=== PATIENT | male | born 1980 | race Caucasian/White ===

== ENCOUNTER → 2019-08-15 | Emergency (ER) | payer OTHER ==
[2019-08-15 09:38] VITALS: BMI 25.6
[2019-08-15 11:14] LABS: EOS % 4.7 % (0-4.5); HEMATOCRIT 49.3 % (35.4-49); HEMOGLOBIN 16.1 GM/dL (11.7-16.9); LYMPH % 21.4 % (8-40); MCH 31.2 pg (25.7-33.7); MCHC 32.7 g/dl (32.0-35.9); MEAN CELL VOLUME 95.6 fl (80-96); MEAN PLT VOLUME 8.7 fl (7.5-11.1); MONO % 8.7 % (3.8-10.2); NEUT % 64.2 % (42.8-82.8); PLATELET COUNT 277 K/MM3 (134-434); RBC 5.16 M/mm3 (4.00-5.60); RDW 14.1 % (11.9-15.9); WHITE BLOOD COUNT 5.3 K/mm3 (4.0-10.0)
[2019-08-15 11:45] LABS: ALBUMIN 3.7 g/dl (3.4-5.0); BILIRUBIN,TOTAL 0.3 mg/dL (0.2-1); BLOOD UREA NITROGEN 12.1 mg/dL (7-18); CALCIUM 9.1 mg/dL (8.5-10.1); CREATININE 1.1 mg/dL (0.55-1.3); POTASSIUM 4.5 mmol/L (3.5-5.1); TOT PROT 7.1 g/dl (6.4-8.2)
--- NOTE | 2019-08-15 11:53 | EKG ---
Test Reason : Blood Pressure : / mmHG Vent. Rate : 077 BPM Atrial Rate : 077 BPM P-R Int : 152 ms QRS Dur : 086 ms QT Int : 386 ms P-R-T Axes : 030 033 035 degrees QTc Int : 436 ms NORMAL SINUS RHYTHM NONSPECIFIC ST ABNORMALITY ABNORMAL ECG NO PREVIOUS ECGS AVAILABLE Confirmed by DAVID CH MD ([id number]) on 08/15/2019 11:52:45 AM Referred By: Confirmed By:DAVID CH MD
--- NOTE | 2019-08-15 11:58 | PDOC ---
*Physical Exam - Vital Signs Last Vital Signs Temp Pulse Resp BP Pulse Ox 97.9 F 82 21 H 130/84 97 08/15/19 09:35 08/15/19 09:35 08/15/19 11:00 08/15/19 09:35 08/15/19 11:00 ED Treatment Course - LABORATORY CBC & Chemistry Diagram: 08/15/19 10:30 08/15/19 10:30 - ADDITIONAL ORDERS Additional order review: Laboratory Results 08/15/19 10:30 Sodium 141 Potassium 4.5 Chloride 102 Carbon Dioxide 36 H Anion Gap 2 L BUN 12.1 Creatinine 1.1 Est GFR (CKD-EPI)AfAm 98.18 Est GFR (CKD-EPI)NonAf 84.71 Random Glucose 86 Calcium 9.1 Total Bilirubin 0.3 AST 37 ALT 102 H Alkaline Phosphatase 81 Total Protein 7.1 Albumin 3.7 08/15/19 10:30 RBC 5.16 MCV 95.6 MCHC 32.7 RDW 14.1 MPV 8.7 Neutrophils % 64.2 Lymphocytes % 21.4 Monocytes % 8.7 Eosinophils % 4.7 H Basophils % 1.0 Medical Decision Making - Medical Decision Making 08/15/19 11:55 38y M no known pmhx presents wiht several days of sob/hong/orthopnea associated with scant cough. pt denies any cp, leg sweling, calf pain, hemoptysis, recent travel. pt not on any meds at baseline. General: GENERAL: The patient is awake, alert, and fully oriented, Nontoxic - in no acute distress. HEAD: Normocephalic, atraumatic. EYES: extraocular movements intact, sclera anicteric, conjunctiva clear. ENT: Normal voice, Moist mucous membranes. NECK: Normal range of motion, supple LUNGS: deminished breath sounds in RLL HEART: Regular rate and rhythm, normal S1 and S2 without murmur, rub or gallop. ABDOMEN: Soft, nontender, No guarding, no rebound. No CVA tenderness EXTREMITIES: Normal range of motion, no edema. NEUROLOGICAL: No facial assymetry, Normal speech, PSYCH: Normal mood, normal affect. SKIN: Warm, Dry, normal turgor, ddx - pna, pleural effusion, consider PE xray noted for white out of R middle lobe will obtain CT 08/15/19 12:05 bedside US of the pts chest showes mass is consistent with liver will obtian CT abdomen/pelvis/chest to further evaluate cause 08/15/19 17:24 The patient was seen and evaluated in conjunction with ELÍAS Massey under my direct supervision, ancillary studies were reviewed. I independently interviewed and evaluated the patient and I agree with the plan as outlined by ELÍAS Massey. Discharge - Discharge Information Problems reviewed: Yes Clinical Impression/Diagnosis: Diaphragm, eventration, Hypoxia Condition: Guarded Disposition: TRANSFER ACUTE CARE/OTHER HOSP - Admission No - Follow up/Referral - Patient Discharge Instructions - Post Discharge Activity
[2019-08-15 13:13] LABS: ARTERIAL BLD GAS O2 SATURATION 95.3 % (95-98); ARTERIAL BLOOD GAS BASE EXCESS 3.9 meq/l (-2-2); ARTERIAL BLOOD GAS PCO2 67.1 mmHg (35-45); ARTERIAL BLOOD GAS PO2 85.9 mmHg (80-100); CARBOXYHEMOGLOBIN 0.6 % (0-2)
[2019-08-15 13:17] LABS: ALLENS TEST POSITIVE
--- NOTE | 2019-08-15 13:55 | PDOC ---
History of Present Illness - General Chief Complaint: Shortness of Breath Stated Complaint: shorntess of breath Time Seen by Provider: 08/15/19 10:28 History Source: Patient Exam Limitations: No Limitations - History of Present Illness Initial Comments: 08/15/19 10:50 38-year-old male who denies any past medical history presents the emergency room with complaints of Shortness of breath worsened when lying flat for the past 3 days. patient denies cough, dizziness, chest pain, shortness of breath with exertion, lower extremity edema, palpitations, headache, fever or chills. Patient denies smoking history, recent travel, recent illness, drinking history , or recent injury. Is this a multiple visit Asthma Patient?: No Timing/Duration: reports: other Severity: reports: moderate Possible Cause: Yes: no prior episodes Modifying Factors: improves with: lying down Associated Symptoms: reports: shortness of breath Past History - Travel Traveled outside of the country in the last 30 days: No Close contact w/someone who was outside of country & ill: No - Past Medical History Allergies/Adverse Reactions: Allergies Allergy/AdvReac Type Severity Reaction Status Date / Time No Known Allergies Allergy Verified 08/15/19 09:39 Home Medications: Ambulatory Orders NK [No Known Home Medication] 08/15/19 COPD: No - Psycho Social/Smoking Cessation Hx Smoking History: Never smoked Information on smoking cessation initiated: No Hx Alcohol Use: No Drug/Substance Use Hx: No Patient Lives Alone: No Lives with/in: friend Review of Systems - Review of Systems Able to Perform ROS?: Yes Constitutional: No: Symptoms Reported HEENTM: No: Symptoms Reported Respiratory: Yes: Orthopnea, Shortness of Breath. No: Cough Cardiac (ROS): No: Symptoms Reported ABD/GI: No: Symptoms Reported : No: Symptoms Reported Musculoskeletal: No: Symptoms Reported Integumentary: No: Symptoms Reported Neurological: No: Symptoms reported Hematologic/Lymphatic: No: Symptoms Reported *Physical Exam - Vital Signs Last Vital Signs Temp Pulse Resp BP Pulse Ox 98.3 F 82 21 H 130/84 97 08/15/19 13:19 08/15/19 09:35 08/15/19 11:00 08/15/19 09:35 08/15/19 11:00 - Physical Exam General Appearance: Yes: Nourished, Appropriately Dressed. No: Apparent Distress HEENT: positive: Pharynx Normal. negative: Pale Conjunctivae Neck: positive: Supple Respiratory/Chest: positive: Decreased Breath Sounds (To right base). negative : Chest Tender, Respiratory Distress, Accessory Muscle Use, Crackles, Rhonchi, Stridor, Wheezing Cardiovascular: positive: Regular Rhythm, Regular Rate. negative: Murmur Gastrointestinal/Abdominal: positive: Soft. negative: Tenderness Extremity: positive: Normal Inspection. negative: Pedal Edema Integumentary: positive: Normal Color, Warm, Moist Neurologic: positive: Normal Mood/Affect (Appears comfortable), Motor Strength 5 /5 (Ambulatory) ED Treatment Course - LABORATORY CBC & Chemistry Diagram: 08/15/19 10:30 08/15/19 10:30 - ADDITIONAL ORDERS Additional order review: Laboratory Results 08/15/19 08/15/19 12:45 10:30 Anticoagulation Therapy No Result Required. Puncture Site Left radial ABG pH 7.30 L ABG pCO2 at Pt Temp 67.1 H ABG pO2 at Pt Temp 85.9 ABG HCO3 32.3 H ABG O2 Sat (Measured) 95.3 ABG O2 Content 20.1 ABG Base Excess 3.9 H Chris Test Positive Carboxyhemoglobin 0.6 Methemoglobin < 1.0 O2 Delivery Device N/c Oxygen Flow Rate 2l Vent Mode No Result Required. Vent Rate No Result Required. Mechanical Rate No Result Required. Pressure Support Vent No Result Required. Sodium 141 Potassium 4.5 Chloride 102 Carbon Dioxide 36 H Anion Gap 2 L BUN 12.1 Creatinine 1.1 Est GFR (CKD-EPI)AfAm 98.18 Est GFR (CKD-EPI)NonAf 84.71 Random Glucose 86 Calcium 9.1 Total Bilirubin 0.3 AST 37 ALT 102 H Alkaline Phosphatase 81 Total Protein 7.1 Albumin 3.7 08/15/19 10:30 RBC 5.16 MCV 95.6 MCHC 32.7 RDW 14.1 MPV 8.7 Neutrophils % 64.2 Lymphocytes % 21.4 Monocytes % 8.7 Eosinophils % 4.7 H Basophils % 1.0 - RADIOLOGY Radiology Studies Ordered: Category Date Time Status ABDOMEN CT WITHOUT CONTRAST [CT] Stat CT Scan 08/15/19 12:[address] WITHOUT CONTRAST [CT] Stat CT Scan 08/15/19 12:03 Ordered CHEST PA & LAT [RAD] Stat Radiology 08/15/19 10:28 Completed Medical Decision Making - Medical Decision Making 08/15/19 10:52 Chief complaint: Orthopnea while lying down for the past 3 days without any other associated symptoms. Patient denies medical history. Exam: Patient hypoxic and repeated with an O2 sat of 91% while sitting in the chair on room air, decreased breath sounds to the right base otherwise no other abnormal findings on physical exam noted. Plan: Patient brought directly to x-ray for chest x-ray placed on oxygen and moved to room 12. Additional labs included labs, IV access, EKG 08/15/19 11:53 Bedside ultrasound ordered secondary to abnormal chest x-ray concerning for pneumonia versus other etiology. Patient states comfortable sitting semierect with oxygen at 2 L 08/15/19 11:59 Laboratory Tests 08/15/19 10:30 WBC 5.3 Hgb 16.1 Hct 49.3 H Absolute Neuts (auto) 3.4 Influenza swab pending 08/15/19 13:54 08/15/19 13:25 Laboratory Tests 08/15/19 08/15/19 08/15/19 10:30 10:30 12:45 ABG pH 7.30 L ABG pCO2 at Pt Temp 67.1 H ABG pO2 at Pt Temp 85.9 ABG HCO3 32.3 H ABG O2 Sat (Measured) 95.3 ABG O2 Content 20.1 ABG Base Excess 3.9 H Chris Test Positive Carboxyhemoglobin 0.6 Methemoglobin < 1.0 Sodium 141 Potassium 4.5 Chloride 102 Carbon Dioxide 36 H Anion Gap 2 L BUN 12.1 Creatinine 1.1 Est GFR (CKD-EPI)AfAm 98.18 Est GFR (CKD-EPI)NonAf 84.71 Lactic Acid Calcium 9.1 Total Bilirubin 0.3 AST 37 ALT 102 H B-Natriuretic Peptide Total Protein 7.1 Albumin 3.7 Influenza A (Rapid) Negative Influenza B (Rapid) Negative 08/15/19 08/15/19 13:05 13:05 ABG pH ABG pCO2 at Pt Temp ABG pO2 at Pt Temp ABG HCO3 ABG O2 Sat (Measured) ABG O2 Content ABG Base Excess Chris Test Carboxyhemoglobin Methemoglobin Sodium Potassium Chloride Carbon Dioxide Anion Gap BUN Creatinine Est GFR (CKD-EPI)AfAm Est GFR (CKD-EPI)NonAf Lactic Acid 0.7 Calcium Total Bilirubin AST ALT B-Natriuretic Peptide Pending Total Protein Albumin Influenza A (Rapid) Influenza B (Rapid) Selected Entries 08/15/19 11:00 Respiratory 21 H Rate Respiratory Normal Depth O2 Sat by Pulse 97 Oximetry (%) Oxygen Delivery Room Air Method While patient was receiving bedside ultrasound ultrasound appeared to demonstrate a liver displaced into his right middle lobe also noted while receiving ultrasound patient had numerous. Ecchymotic areas to his lower abdomen. When questioned patient states was admitted recently and to [facility] for leg weakness and was discharged on the just 4 days ago. Case discussed with ER physician, Dr. Lockett who states patient was not admitted recently into the hospital but was able to review previous visit history from 2016 which demonstrated respiratory distress, CHF and patient was intubated. Patient at that time had a normal chest x-ray when questioned patient in regards to this he stated yes he was admitted but was unsure for what and states he was intubated and unsure for what. Patient states does not take medication a daily basis. Patient still insisting he was admitted to [facility]. Called the ER physician again who was unable to find patient based on different spellings of his name and was unable to put his date of as an identifier in order to review visit histories patient now ordered for Chest and abdomen CT BNP was added. 08/15/19 13:57 08/15/19 14:55 Laboratory Tests 08/15/19 13:05 B-Natriuretic Peptide 19.[address] results. pt comfortable on 2l sitting upright on stretcher Discharge - Discharge Information Problems reviewed: Yes Clinical Impression/Diagnosis: Diaphragm, eventration Condition: Guarded Disposition: TRANSFER ACUTE CARE/OTHER HOSP - Follow up/Referral - Patient Discharge Instructions - Post Discharge Activity
--- NOTE | 2019-08-15 16:36 | PDOC ---
*Physical Exam - Vital Signs Last Vital Signs Temp Pulse Resp BP Pulse Ox 98.3 F 82 21 H 130/84 99 08/15/19 13:19 08/15/19 09:35 08/15/19 11:00 08/15/19 09:35 08/15/19 14:24 - Physical Exam 08/15/19 16:36 Sign-out received from outgoing ER provider Shilpa. Pt interviewed and examined. Ancillary studies reviewed. Awaiting CT results. 08/15/19 18:18 CT results indicate marked elevation of R diaphragm. Right upper and right lower lobe bronchiectasis. Spoke with CT surgeon MD Shea regarding decreased O2 sat secondary to elevated diaphragm. Recommend transfer to [facility] for further workup and management of acute onset SOB with questionable PMH and eventration of diaphragm. 08/15/19 21:[address] Layton at [facility] who agrees with transfer to [facility] given acute onset of SOB and unclear history/etiology of eventration of diaphragm. Attending MD Mcdonnell spoke with attending MD Barriga at [facility] who accepts patient for transfer to [facility]. ED Treatment Course - LABORATORY CBC & Chemistry Diagram: 08/15/19 10:30 08/15/19 10:30 - ADDITIONAL ORDERS Additional order review: Laboratory Results 08/15/19 08/15/19 08/15/19 13:05 13:05 12:45 Anticoagulation Therapy No Result Required. Puncture Site Left radial ABG pH 7.30 L ABG pCO2 at Pt Temp 67.1 H ABG pO2 at Pt Temp 85.9 ABG HCO3 32.3 H ABG O2 Sat (Measured) 95.3 ABG O2 Content 20.1 ABG Base Excess 3.9 H Chris Test Positive Carboxyhemoglobin 0.6 Methemoglobin < 1.0 O2 Delivery Device N/c Oxygen Flow Rate 2l Vent Mode No Result Required. Vent Rate No Result Required. Mechanical Rate No Result Required. Pressure Support Vent No Result Required. Sodium Potassium Chloride Carbon Dioxide Anion Gap BUN Creatinine Est GFR (CKD-EPI)AfAm Est GFR (CKD-EPI)NonAf Random Glucose Lactic Acid 0.7 Calcium Total Bilirubin AST ALT Alkaline Phosphatase B-Natriuretic Peptide 19.5 Total Protein Albumin 08/15/19 10:30 Anticoagulation Therapy Puncture Site ABG pH ABG pCO2 at Pt Temp ABG pO2 at Pt Temp ABG HCO3 ABG O2 Sat (Measured) ABG O2 Content ABG Base Excess Chris Test Carboxyhemoglobin Methemoglobin O2 Delivery Device Oxygen Flow Rate Vent Mode Vent Rate Mechanical Rate Pressure Support Vent Sodium 141 Potassium 4.5 Chloride 102 Carbon Dioxide 36 H Anion Gap 2 L BUN 12.1 Creatinine 1.1 Est GFR (CKD-EPI)AfAm 98.18 Est GFR (CKD-EPI)NonAf 84.71 Random Glucose 86 Lactic Acid Calcium 9.1 Total Bilirubin 0.3 AST 37 ALT 102 H Alkaline Phosphatase 81 B-Natriuretic Peptide Total Protein 7.1 Albumin 3.7 08/15/19 10:30 RBC 5.16 MCV 95.6 MCHC 32.7 RDW 14.1 MPV 8.7 Neutrophils % 64.2 Lymphocytes % 21.4 Monocytes % 8.7 Eosinophils % 4.7 H Basophils % 1.0 Discharge - Discharge Information Problems reviewed: Yes Clinical Impression/Diagnosis: Diaphragm, eventration Condition: Guarded Disposition: TRANSFER ACUTE CARE/OTHER HOSP - Admission No - Follow up/Referral - Patient Discharge Instructions - Post Discharge Activity - Transfer to Acute Care Facility Receiving Facility Name: [facility]
[2019-08-15 18:52] VITALS: PULSE 88
[2019-08-15 22:21] VITALS: BP 118/77; TEMP 98.9
== END | disposition short-term general hospital (02) ==
LOC: JER 09:32
DX: Q79.1 Other congenital malformations of diaphragm (principal); R09.02 Hypoxemia
CPT/HCPCS: 36415; 36600; 71046-TC-FY; 71250-TC; 74150-TC; 80053; 82375; 82803; 83050; 83605; 83880; 85025; 87040; 87804; 93005; 93010; 99285-25